=== PATIENT | female | born 2005 | race Caucasian/White ===

== ENCOUNTER 2024-05-23 22:21 | Emergency (ER) | payer OTHER, SELFPAY ==
[2024-05-23 22:23] VITALS: BP 120/80; PULSE 81; RESP 16; TEMP 36.1; O2SAT 98; BMI 23.9
--- NOTE | 2024-05-23 22:41 | ED.GENADULT ---
HPI - General Adult General Chief complaint: Abdominal Pain Stated complaint: Abdominal pain Time Seen by Provider: 05/23/24 22:29 Source: patient Mode of arrival: ambulatory Limitations: no limitations History of Present Illness HPI narrative: 18-year-old female coming in today complaining of abdominal pain. Pain is located in the epigastric area. It is present 1st thing in the morning and has been there for approximately 2 months. She states that as the day goes by she generally forgets about the pain. Today she felt a nagging discomfort all day so she came into the emergency room for evaluation. Patient denies any nausea, vomiting, fevers, chills. No difficulty urinating. She denies any dysuria, increased frequency urgency. She denies changes in her appetite or weight changes. She denies diarrhea or constipation. Last bowel movement was yesterday periods are regular and monthly, last 1 was approximately 3 weeks ago. No new medications. Nothing seems to make the pain better or worse when she does have it. Not associated with eating. Related Data Home Medications ?Medication ?Instructions ?Recorded ?Confirmed No Known Home Medications 05/23/24 05/23/24 Allergies Allergy/AdvReac Type Severity Reaction Status Date / Time No Known Drug Allergies Allergy Verified 12/01/22 11:32 Review of Systems Status of ROS: Reports: 10 or more systems reviewed and unremarkable except as noted in History and below [facility] Medical History Suicide attempt by other psychotropic drug overdose ?T43.8X2A - Poisoning by other psychotropic drugs, intentional self-harm, initial encounter (ICD-10) Suicidal ideation ?R45.851 - Suicidal ideations (ICD-10) Seizure disorder ?G40.909 - Epilepsy, unspecified, not intractable, without status epilepticus (ICD-10) Seizure ?R56.9 - Unspecified convulsions (ICD-10) Recurrent otitis media (03/27/10) ?H66.90 - Otitis media, unspecified, unspecified ear (ICD-10) 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 Alert and oriented. Answers questions appropriately. Mood and affect are appropriate. Thoughts are goal oriented and rational. No tangential or magical thinking noted. Patient speaks in full sentences without needing to catch her breath. HEENT: Normocephalic atraumatic. Pupils are equally round reactive to light. Extraocular muscles are intact. Conjunctivae are moist without any icterus noted. Moist mucous membranes. Cardiovascular: Heart is regular rate and rhythm S1 and S2 are present without any murmurs. Lungs: Clear to auscultation bilaterally no wheezes rhonchi or rales are appreciated. Patient takes deep breaths without any discomfort. Abdomen: Soft and nondistended with normal bowel sounds. She has mild epigastric discomfort. Negative Toure sign. No right or left upper quadrant pain. No suprapubic discomfort or lower abdominal pain. No masses are appreciated. Skin: Well perfused without any obvious rashes. Const: Vital Signs, click to edit/add: Vital Signs - 24 hr 05/23/24 22:23 Temperature 97.0 F L Pulse Rate [Pulse Oximeter] 81 Respiratory Rate 16 Blood Pressure [Ri ght Upper Arm] 120/80 Pulse Oximetry 98 Oxygen Delivery Me thod Room Air Course Vital Signs Vital signs: Initial Vital Signs Temperature 97.0 F L 05/23/24 22:23 Temperature Source Temporal Artery Scan 05/23/24 22:23 Pulse Rate 81 05/23/24 22:23 Respiratory Rate 16 05/23/24 22:23 Blood Pressure 120/80 05/23/24 22:23 Blood Pressure Mean 93 05/23/24 22:23 Blood Pressure Position Sitting 05/23/24 22:23 Pulse Oximetry 98 05/23/24 22:23 Oxygen Delivery Method Room Air 05/23/24 22:23 Vital Signs Temperature 97.0 F L 05/23/24 22:23 Pulse Rate 81 05/23/24 22:23 Respiratory Rate 16 05/23/24 22:23 Blood Pressure 120/80 05/23/24 22:23 Pulse Oximetry 98 05/23/24 22:23 Oxygen Delivery Method Room Air 05/23/24 22:23 Temperature 97.0 F L 05/23/24 22:23 Pulse Rate 81 05/23/24 22:23 Respiratory Rate 16 05/23/24 22:23 Blood Pressure 120/80 05/23/24 22:23 Pulse Oximetry 98 05/23/24 22:23 Oxygen Delivery Method Room Air 05/23/24 22:23 Medical Decision Making MDM Narrative Medical decision making narrative: 18-year-old feels epigastric discomfort for 2 months. Likely secondary to gastritis. We discussed daily omeprazole for 6 weeks and famotidine p.r.n.. Follow-up with PCP. Discharge Plan Discharge Clinical Impression: Gastritis Patient Disposition: Home, Self-Care Condition: Stable Instructions: Gastritis (ED) Additional Instructions: Start taking daily omeprazole. You can purchase this [id number]. You should take this medication for approximately 6 weeks. If you are having a day where the discomfort is lingering then you can also take a famotidine to help with the discomfort. This medication can also be purchased [id number]. Recommend following up with her primary care provider in approximately 1 month. Follow-up sooner if your symptoms are getting worse instead of better. Prescriptions: No Action No Known Home Medications Follow Up/Referrals: Dalia Pardo DO [Primary Care Provider] - Stand Alone Forms: [employer] Info Instructions
[2024-05-23 22:42] LABS: Appearance Urine Clear (Clear); Bilirubin Urine Negative (Negative); Blood Urine Negative (Negative); Color Urine Yellow (Yellow); Glucose Urine Negative (Negative); Ketones Urine Negative (Negative); Leukocyte Esterase Urine Negative (Negative); Nitrite Urine Negative (Negative); Protein Urine Negative (Negative); Specific Gravity Urine <= 1.005 (1.000-1.030); Urobilinogen Urine 0.2 (0.2-1.0)
[2024-05-23 22:56] LABS: RBC Urine 0-2 (0-2); Squamous Epithelial Cell Urine Few (None-Few); Ur HCG Qualitative* Negative (Negative); WBC Urine 0-2 (0-5)
== END 2024-05-23 22:57 | disposition home or self-care (01) ==
LOC: ED 22:45
PROVIDERS: Emergency Provider Family Medicine
DX: K29.70 Gastritis, unspecified, without bleeding (principal)
CPT/HCPCS: 81001; 81025; 99282; 99283